=== PATIENT | female | born 1995 | race Caucasian/White ===

== ENCOUNTER 2022-02-18 20:22 | Emergency (ER) | payer SELFPAY ==
[~2022-02-18] VITALS: Ht 160 cm; Wt 63.5 kg
--- NOTE | 2022-02-18 20:36 | NUR ---
[address] FOR ALLERGY REACTION. HIVES AND SWOLLEN THROAT UPON EMS ARRIVAL WITH 0.5MG EPI ADMINSTERED IM EN ROUTE. PT REPORTS SIGNIFICANT IMPROVEMENT IN SYMPTOMS, BREATHING UNLBAORWED 98% ON RA. 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
[2022-02-18] MEDS ORDERED: predniSONE 20 MG TABLET ONE (20:52)
[2022-02-18] MEDS ORDERED: diphenhydrAMINE HCL 50 MG CAPSULE ONE (20:52)
[2022-02-18] MEDS ORDERED: predniSONE 20 MG TABLET PO ONE (21:00)
[2022-02-18] MEDS ORDERED: diphenhydrAMINE HCL 50 MG CAPSULE PO ONE (21:00)
[2022-02-18] MEDS ORDERED: PRED20TA PO ×2 (22:59→23:13)
[2022-02-18] MEDS ORDERED: EPIN0.3P3 IM ×2 (22:59→23:13)
--- NOTE | 2022-02-18 23:15 | NUR ---
Patient discharged to home in stable condition. Written and verbal after care instructions given. Patient verbalizes understanding of instruction.IV removed. Catheter intact and site benign. Pressure and 4x4 applied to site. No bleeding noted.
[2022-02-18 23:52] VITALS: BP 118/57
== END 2022-02-18 23:15 | disposition home or self-care (01) ==
LOC: ER 20:29
DX: T78.2XXA Anaphylactic shock, unspecified, initial encounter (principal); F41.9 Anxiety disorder, unspecified; Z98.890 Other specified postprocedural states
CPT/HCPCS: 99283; Q0163; J7512